=== PATIENT | female | born 1950 | race Two or more races ===

== ENCOUNTER 2020-05-09 12:33 | Emergency (ER) | payer OTHER ==
[2020-05-09] MEDS ORDERED: HYDROcodone/Acetaminophen 10/325 mg Tablet ONE (14:32)
== END 2020-05-09 14:50 | disposition home or self-care (01) ==
LOC: ERS 12:33
DX: S82.841A Displaced bimalleolar fracture of right lower leg, initial encounter for closed fracture (principal); E11.9 Type 2 diabetes mellitus without complications; W19.XXXA Unspecified fall, initial encounter

== ENCOUNTER 2024-09-15 14:23 | Outpatient (CLI) | payer MEDICARE | END 2024-09-15 14:24 | disposition home or self-care (01) | LOC: BICMAMMO 14:23 | PROVIDERS: ATTEND Family Medicine | DX: M80.08XA Age-related osteoporosis with current pathological fracture, vertebra(e), initial encounter for fracture (principal); M85.851 Other specified disorders of bone density and structure, right thigh | CPT/HCPCS: 77080 ==